=== PATIENT | male | born 1950 | race Caucasian/White ===

== ENCOUNTER 2021-03-28 13:18 | Inpatient (IN) | payer MEDICARE ==
[2021-03-28 13:54] LABS: #Eosinphils 0.1 10x3/uL (0.0-0.5); #Monocytes 1.6 10x3/uL (0.0-1.1); #Neutrophils 8.7 10x3/uL (1.5-8.4); %Basophils 0.3 % (0.0-2.0); %Eosinophils 0.7 % (0.0-6.0); %Lymphocytes 8.7 % (18.0-47.0); Hemoglobin 12.7 g/dL (13.5-17.5); Mean Corpuscular HGB CONC 32.2 g/dL (32.0-36.0); Mean Corpuscular Hemoglobin 28.2 pg (27.0-33.0); Mean Corpuscular Volume 87.6 fl (81.2-95.1); Platelet Count 174 10x3/uL (150-450); RBC Distribution Width 14.6 % (11.5-14.5); White Blood Cell (WBC) Count 11.5 10x3/uL (3.5-10.5)
[2021-03-28 14:05] LABS: ALT (SGPT) 27 U/L (8-55); AST (SGOT) 49 U/L (5-34); Albumin 4.3 g/dL (3.4-4.8); Alkaline Phosphatase 59 U/L (40-110); Anion Gap 13 mmol/L (10-20); BUN (Urea Nitrogen) 15 mg/dL (8.4-25.7); Bilirubin, Total 1.3 mg/dL (0.2-1.2); Calc. Creatinine Clearance 0 mL/min (70-130); Calcium 8.9 mg/dL (7.8-10.44); Carbon Dioxide 27 mmol/L (23-31); Chloride 102 mmol/L (98-107); Globulin 2.7 g/dL (2.4-3.5); Glucose 114 mg/dL (83-110); Potassium 4.5 mmol/L (3.5-5.1); Sodium 137 mmol/L (136-145)
[2021-03-28 14:22] LABS: Acetaminophen Less than 6.0 mcg/mL (10.0-30.0); Alcohol Less than 10 mg/dL (Less than 10); Magnesium 2.1 mg/dL (1.6-2.6); Salicylate Less than 8.0 mg/dL (15.0-30.0)
[2021-03-28] MEDS ORDERED: Aspirin Chewable 81 MG TAB ONE (14:37)
[2021-03-28 14:53] LABS: Bilirubin Neg (Negative); Blood, Urine Negative (Negative); Clarity Clear (Clear); Glucose, Urine (Dipstick) Normal (Negative); Ketone, Urine Negative (Negative); Leukocyte 25 (Negative); Nitrite Negative (Negative); Protein, Urine (Dipstick) 15 mg/dl (Neg-Trace)
[2021-03-28 15:00] LABS: Amphetamine Not Detected (NotDetected); Barbiturates Screen Not Detected (NotDetected); Benzodiazepine Screen Not Detected (NotDetected); Cocaine Metabolite Screen Not Detected (NotDetected); Methadone Not Detected (NotDetected); Methamphetamine Not Detected (NotDetected); Opiate Screen Not Detected (NotDetected); Oxycodone Screen Not Detected (NotDetected); Phencyclidine (PCP) Not Detected (NotDetected); THC/Cannabinoid Screen Not Detected (NotDetected); Tricyclic Screen Not Detected (NotDetected)
[2021-03-28 15:05] LABS: RBC/HPF 0-3 HPF (0-3); Squamous Epithelial 0-3 HPF (0-3)
[2021-03-28 15:06] LABS: Bacteria/HPF Rare-Few HPF (None Seen)
[2021-03-28] MEDS ORDERED: Heparin 25,000 units/D5W 500 ML ONE (16:12)
[2021-03-28] MEDS ORDERED: Heparin 5,000 UNITS/ML VIAL ONE (16:18)
[2021-03-28 16:24] LABS: Lactic Acid 0.9 mmol/L (0.5-2.2)
[2021-03-28 16:41] LABS: Critical Call Chem Troponin I RESULT DECREASING; Troponin I 7.228 ng/mL (< 0.028)
[2021-03-28] MEDS ORDERED: Nitroglycerin 0.4 MG TAB (25 Tab Bottle) SL PRN (16:57)
[2021-03-28] MEDS ORDERED: Heparin 25,000 units/D5W 500 ML IVPB SCH (17:00)
[2021-03-28] MEDS ORDERED: Heparin 10,000 UNITS/ 10 ML VIAL SLOW IVP SCH (17:00)
[2021-03-28 17:44] LABS: Hemoglobin 12.6 g/dL (13.5-17.5); Platelet Count 180 10x3/uL (150-450)
[2021-03-28] MEDS ORDERED: Communication Order-Pharmacy FS SCH (19:45)
[2021-03-28 20:28] LABS: SARS-CoV-2 NAA Rapid Test Not Detected (NotDetected)
[2021-03-28 21:19] VITALS: BMI 23.2
[2021-03-28] MEDS ORDERED: TICAGRELOR 90 MG TABLET PO SCH (21:30)
[2021-03-28] MEDS: Sodium Chloride 0.9% 1,000 ML IV SCH (21:45)
[2021-03-28] MEDS ORDERED: Atorvastatin Calcium 40 MG TAB PO SCH (21:45)
[2021-03-28] MEDS ORDERED: Metoprolol Tartrate 25 MG TAB PO SCH (21:45)
[2021-03-28] MEDS ORDERED: FLU VACC QS2021-22(65YR UP)/PF 240 MCG/0.7 ML SYRINGE IM ONE (22:00)
[2021-03-29 04:25] LABS: Cardiac Risk 3.4 (Less than 4.5)
[2021-03-29] MEDS: Sodium Chloride 0.9% 1,000 ML IV SCH ×3 (05:19→21:03)
[2021-03-29] MEDS ORDERED: Nitroglycerin 50 MG/250 ML BOT 250 ML ONE (06:47)
[2021-03-29] MEDS ORDERED: Heparin 10,000 UNITS/ 10 ML VIAL ONE ×2 (06:47→07:56)
[2021-03-29] MEDS ORDERED: Lidocaine 1% PF 5 ML VIAL ONE (06:47)
[2021-03-29] MEDS ORDERED: Verapamil 5 MG/2 ML VIAL ONE (06:48)
[2021-03-29] MEDS ORDERED: Adenosine 6 MG/2 ML VIAL ONE (06:48)
[2021-03-29] MEDS ORDERED: Bivalirudin 250 MG VIAL ONE (06:48)
[2021-03-29] MEDS ORDERED: Fentanyl 100 MCG/2 ML VIAL ONE (07:32)
[2021-03-29] MEDS ORDERED: Midazolam HCl 2 mg/2 ml Vial ONE ×2 (07:33→08:07)
[2021-03-29] MEDS ORDERED: Aspirin 325 MG TAB ONE (08:08)
[2021-03-29] MEDS ORDERED: Acetaminophen/Codeine 30-300mg Tablet PO PRN ×2 (08:27)
[2021-03-29] MEDS ORDERED: Sodium Chloride 0.9% 200 ML IV PRN (08:27)
[2021-03-29] MEDS ORDERED: Nitroglycerin 0.4 MG TAB (25 Tab Bottle) SL PRN (08:27)
[2021-03-29] MEDS: Aspirin Chewable 81 MG TAB PO SCH (08:43)
[2021-03-29] MEDS ORDERED: Enoxaparin Sodium 40 MG/0.4 ML SYRINGE SC SCH (09:00)
[2021-03-29] MEDS: Metoprolol Tartrate 25 MG TAB PO SCH ×2 (10:19→21:02)
[2021-03-29] MEDS: TICAGRELOR 90 MG TABLET PO SCH ×2 (10:20→21:03)
[2021-03-29 10:33] LABS: #Eosinphils 0.1 10x3/uL (0.0-0.5); #Monocytes 1.4 10x3/uL (0.0-1.1); #Neutrophils 8.4 10x3/uL (1.5-8.4); %Basophils 0.2 % (0.0-2.0); %Eosinophils 0.7 % (0.0-6.0); %Lymphocytes 6.3 % (18.0-47.0); %Monocytes 12.8 % (0.0-10.0); %Neutrophils 79.7 % (40.0-75.0); Hemoglobin 11.5 g/dL (13.5-17.5); Mean Corpuscular HGB CONC 32.7 g/dL (32.0-36.0); Mean Corpuscular Hemoglobin 28.5 pg (27.0-33.0); Mean Corpuscular Volume 87.1 fl (81.2-95.1); Mean Platelet Volume 10.4 fl (7.4-10.4); Platelet Count 159 10x3/uL (150-450); RBC Distribution Width 14.6 % (11.5-14.5); Red Blood Cell (RBC) Count 4.04 10x6/uL (4.32-5.72); White Blood Cell (WBC) Count 10.5 10x3/uL (3.5-10.5)
[2021-03-29 10:48] LABS: Anion Gap 11 mmol/L (10-20); BUN (Urea Nitrogen) 11 mg/dL (8.4-25.7); Calc. Creatinine Clearance 119 mL/min (70-130); Calcium 8.2 mg/dL (7.8-10.44); Carbon Dioxide 24 mmol/L (23-31); Chloride 107 mmol/L (98-107); Glucose 107 mg/dL (83-110); Potassium 4.6 mmol/L (3.5-5.1); Sodium 137 mmol/L (136-145)
[2021-03-29] MEDS ORDERED: Loperamide HCl 2 MG CAP PO PRN (15:09)
[2021-03-29] MEDS ORDERED: Atorvastatin Calcium 40 MG TAB PO SCH (21:00)
[2021-03-30 04:21] LABS: Anion Gap 10 mmol/L (10-20); BUN (Urea Nitrogen) 9 mg/dL (8.4-25.7); Calc. Creatinine Clearance 116 mL/min (70-130); Calcium 8.4 mg/dL (7.8-10.44); Carbon Dioxide 24 mmol/L (23-31); Chloride 109 mmol/L (98-107); Glucose 100 mg/dL (83-110); Sodium 139 mmol/L (136-145)
[2021-03-30 04:26] LABS: #Eosinphils 0.2 10x3/uL (0.0-0.5); #Monocytes 1.2 10x3/uL (0.0-1.1); #Neutrophils 5.6 10x3/uL (1.5-8.4); %Basophils 0.3 % (0.0-2.0); %Eosinophils 2.6 % (0.0-6.0); %Lymphocytes 11.3 % (18.0-47.0); %Monocytes 14.9 % (0.0-10.0); %Neutrophils 69.5 % (40.0-75.0); Hemoglobin 11.2 g/dL (13.5-17.5); Mean Corpuscular HGB CONC 33.1 g/dL (32.0-36.0); Mean Corpuscular Hemoglobin 28.8 pg (27.0-33.0); Mean Corpuscular Volume 86.9 fl (81.2-95.1); Mean Platelet Volume 10.6 fl (7.4-10.4); Platelet Count 159 10x3/uL (150-450); RBC Distribution Width 14.8 % (11.5-14.5); Red Blood Cell (RBC) Count 3.89 10x6/uL (4.32-5.72); White Blood Cell (WBC) Count 7.9 10x3/uL (3.5-10.5)
[2021-03-30] MEDS: Sodium Chloride 0.9% 1,000 ML IV SCH (07:04)
[2021-03-30] MEDS: TICAGRELOR 90 MG TABLET PO SCH (08:13)
[2021-03-30] MEDS: Metoprolol Tartrate 25 MG TAB PO SCH (08:13)
[2021-03-30] MEDS: Aspirin Chewable 81 MG TAB PO SCH (08:13)
[2021-03-30 08:41] VITALS: BP 95/50; TEMP 98.5
[2021-03-30] MEDS ORDERED: Lisinopril 2.5 MG TAB PO SCH (09:00)
== END 2021-03-30 12:00 | disposition home or self-care (01) | DRG 247 ==
LOC: CSHERS 13:18 → CSHERHOLD 16:30 → CSHIMCU 18:54 → CSHTELE 03-29 17:48
PROVIDERS: ADMIT Hospitalist; ATTEND Hospitalist
PROC: 027034Z Dilation of Coronary Artery, One Artery with Drug-eluting Intraluminal Device, Percutaneous Approach (ICD-10-PCS; principal; 2021-03-29)
PROC: 02C03ZZ Extirpation of Matter from Coronary Artery, One Artery, Percutaneous Approach (ICD-10-PCS; 2021-03-29)
PROC: 4A023N7 Measurement of Cardiac Sampling and Pressure, Left Heart, Percutaneous Approach (ICD-10-PCS; 2021-03-29)
PROC: B2111ZZ Fluoroscopy of Multiple Coronary Arteries using Low Osmolar Contrast (ICD-10-PCS; 2021-03-29)
PROC: B2151ZZ Fluoroscopy of Left Heart using Low Osmolar Contrast (ICD-10-PCS; 2021-03-29)
DX: I21.4 Non-ST elevation (NSTEMI) myocardial infarction (principal); I25.10 Atherosclerotic heart disease of native coronary artery without angina pectoris; Z20.822 Contact with and (suspected) exposure to COVID-19
CPT/HCPCS: 36415; 71045; 80048; 80053; 80061; 80306; 80307; 81003; 81015; 82553; 83605; 83735; 83880; 84484; 85025; 85347; 85730; 92921; 92928; 93005; 93010; 93458; 96365; 96366; 97139; 99152; 99153; C1760; C1874; C1887; C9600; J0153; J0583; J1644; J2250; J3010; J7050; U0002

== ENCOUNTER 2021-09-28 08:50 | Emergency (ER) | payer MEDICARE ==
[2021-09-28 09:27] LABS: #Basophils 0.1 10x3/uL (0.0-0.2); #Eosinphils 0.8 10x3/uL (0.0-0.5); #Monocytes 0.9 10x3/uL (0.0-1.1); #Neutrophils 5.6 10x3/uL (1.5-8.4); %Basophils 0.6 % (0.0-2.0); %Monocytes 11.1 % (0.0-10.0); %Neutrophils 69.1 % (40.0-75.0); Hemoglobin 14.6 g/dL (13.5-17.5); Mean Corpuscular HGB CONC 34.4 g/dL (32.0-36.0); Mean Corpuscular Volume 84.3 fl (81.2-95.1); Mean Platelet Volume 9.5 fl (7.4-10.4); Platelet Count 206 10x3/uL (150-450); RBC Distribution Width 14.6 % (11.5-14.5); Red Blood Cell (RBC) Count 5.03 10x6/uL (4.32-5.72); White Blood Cell (WBC) Count 8.1 10x3/uL (3.5-10.5)
[2021-09-28 09:43] LABS: ALT (SGPT) 23 U/L (8-55); AST (SGOT) 23 U/L (5-34); Albumin 4.3 g/dL (3.4-4.8); Alkaline Phosphatase 68 U/L (40-110); Anion Gap 16 mmol/L (10-20); BUN (Urea Nitrogen) 22 mg/dL (8.4-25.7); Bilirubin, Total 0.5 mg/dL (0.2-1.2); Calc. Creatinine Clearance 0 mL/min (70-130); Calcium 9.3 mg/dL (7.8-10.44); Carbon Dioxide 27 mmol/L (23-31); Chloride 102 mmol/L (98-107); Globulin 2.7 g/dL (2.4-3.5); Glucose 117 mg/dL (83-110); Potassium 4.8 mmol/L (3.5-5.1); Sodium 140 mmol/L (136-145)
== END 2021-09-28 10:51 | disposition home or self-care (01) ==
LOC: CSHERS 08:50
DX: R53.83 Other fatigue (principal); Z79.899 Other long term (current) drug therapy; Z79.82 Long term (current) use of aspirin; I25.2 Old myocardial infarction
CPT/HCPCS: 71045; 80053; 84484; 85025; 93005